=== PATIENT | female | born 1960 | race Caucasian/White ===

== ENCOUNTER 2016-06-22 21:21 | Emergency (ER) | payer OTHER ==
--- NOTE | ~2016-06-22 | CT16 ---
[facility] A Service of [facility] RADIOLOGY TEXT RESULTS PATIENT: NATHALIE KOCH LOCATION: [facility] : 62 UNIT #: [id number] AGE: [address]: Mani You MD SEX: F ORDER DR: [id number] [facility] [address]. [place], [place] [address] [id number] E MR#: [id number] Acc #: [id number] NAME: NATHALIE KOCH : 1960 SEX: F STUDY DATE/TIME: 06/22/2016 22:58 UNIT: HANNA ROOM: STUDY DESCRIPTION: CT Angio Chest for PE Attending Physician: Mani You M.D. Ordering Physician: Mani You M.D. Primary Care Physician: Richar Leahy M.D. MEDICAL IMAGING REPORT This report is preliminary unless electronic signature is present EXAM CTA chest, PE protocol INDICATIONS Elevated D-dimer level, chest pain, shortness of air and cough today. PROCEDURE Contrast-enhanced CTA of the chest, attention on opacification of the pulmonary arteries. Coronal and 3-D MIP sagittal reformatted images were reconstructed and submitted. 80 mL of Isovue-370. This CT exam was performed with one or more of the following radiation dose reduction techniques: Automatic exposure control, adjustment of mA and/or kV according to patient size, and iterative reconstruction. COMPARISON 05/20/2015 FINDINGS No evidence for pulmonary embolus. No evidence for acute aortic injury. Mild cardiomegaly. No acute findings in the included upper abdomen. Lungs are clear. No aggressive appearing bone lesion. Subacute or old fracture of the posterolateral right ninth rib. IMPRESSION 1. No acute findings in the chest, no evidence for pulmonary embolus. 2. Late subacute or old fracture of the posterolateral right ninth rib still shows some surrounding callus. It is new compared with 05/20/2015. Dictated by... [facility] A Service of [facility] RADIOLOGY TEXT RESULTS PATIENT: NATHALIE KOCH LOCATION: [facility] : 62 UNIT #: [id number] AGE: [address]: Mani You MD SEX: F ORDER DR: Aaron Guo M.D. THIS IS AN ELECTRONICALLY VERIFIED REPORT Aaron Guo M.D. at 06/23/2016 10:22 PM EED/psc TD: 06/23/2016 02:24 JOB #: [id number] MEDICAL IMAGING REPORT Page 1 of 1 COPY
--- NOTE | ~2016-06-22 | CR72 ---
[facility] A Service of [facility] RADIOLOGY TEXT RESULTS PATIENT: NATHALIE KOCH LOCATION: [facility] : 62 UNIT #: [id number] AGE: [address]: Mani You MD SEX: F ORDER DR: [id number] [facility] [address] [place], [place] [address] [id number] E MR#: [id number] Acc #: [id number] NAME: NATHALIE KOCH : 1960 SEX: F STUDY DATE/TIME: 06/22/2016 20:46 UNIT: [facility] ROOM: STUDY DESCRIPTION: CR Chest Single View Portable Attending Physician: Mani You M.D. Ordering Physician: Ed Doctor [id number] [facility] Primary Care Physician: Richar Leahy M.D. MEDICAL IMAGING REPORT This report is preliminary unless electronic signature is present EXAM Single view chest INDICATIONS Chest pain, shortness of air and cough. FINDINGS Single portable AP view of the chest compared to 02/25/2016. Heart mediastinal contours normal. Lungs are clear. No pneumothorax. IMPRESSION No acute findings. Dictated by... Bernard West M.D. THIS IS AN ELECTRONICALLY VERIFIED REPORT Bernard West M.D. at 06/23/2016 3:06 PM Marjorie TD: 06/23/2016 01:25 JOB #: [id number] MEDICAL IMAGING REPORT Page 1 of 1 COPY
--- NOTE | ~2016-06-22 | EKG ---
PATIENT: NATHALIE KOCH UNIT #: [id number] Ventricular Rate: 96 BPM Atrial Rate: 96 BPM P-R Interval: 142 ms QRS Duration: 86 ms Q-T Interval: 370 ms QTC Calculation(Bezet): 467 ms P [place]: 43 degrees Calculated R [place]: 24 degrees Calculated T [place]: 76 degrees Diagnosis Line: Normal sinus rhythm Diagnosis Line: Normal ECG Diagnosis Line: When compared with ECG of 20-MAY-2015 20:35, Diagnosis Line: No significant change was found Diagnosis Line: Confirmed by BARNEY CASIANO MD ([id number]) on 06/23/2016 Diagnosis Line: 10:28:29 PM INTERPRETING MD: [place] LEO
[2016-06-22 20:48] LABS: BASOPHIL# 0.1 X10e3 (0-0.3); BASOPHIL% 0.4 % (0-2.5); EOSINOPHIL# 0.4 X10e3 (0-0.7); EOSINOPHIL% 2.4 % (0.0-7.0); HEMATOCRIT 39.5 % (35.0-45.0); HEMOGLOBIN 12.6 gm/dL (12.0-16.0); LYMPHOCYTE% 19.5 % (17.0-45.0); MEAN CELL VOLUME 88.3 FL (83-96); MEAN CORPUSCULAR HEMOGLOBIN 28.1 PG (28-34); MEAN CORPUSCULAR HGB CONC 31.8 g/dL (30-36); MEAN PLATELET VOLUME 8.3 FL (6.5-11.5); MONOCYTE# 1.1 X10e3 (0-1.0); MONOCYTE% 7.3 % (3.0-12.0); NEUTROPHIL# 10.9 X10e3 (1.5-7.1); NEUTROPHIL% 70.4 % (40-75); PLATELET COUNT 294 X10e3 (140-420); RED BLOOD COUNT 4.48 X10e (3.90-5.30); RED CELL DISTRIBUTION WIDTH 15.2 % (11.0-15.5); WHITE BLOOD COUNT 15.5 X10e3 (4.0-10.5)
[2016-06-22 20:49] LABS: DIFF IND YES
[2016-06-22 20:57] LABS: ALBUMIN SERUM 3.6 g/dL (3.5-5.0); BILIRUBIN, DIRECT 0.1 mg/dL (0.0-0.2); BILIRUBIN,INDIRECT 0.5 mg/dL (0.0-0.9); BILIRUBIN,TOTAL 0.6 mg/dL (0.2-2.0); CALCIUM SERUM 9.3 mg/dL (8.4-10.2); CREATININE SERUM 0.5 mg/dL (0.6-1.4); GLOM FILT RATE Estimated 109.7 mL/min (>60); POTASSIUM 3.4 mmol/L (3.5-5.1)
[2016-06-22 21:02] LABS: POC - CKMB <1.0 ng/mL (0.0-7.9); POC - TROPONIN <0.05 ng/mL (<=0.05)
[2016-06-22 21:14] LABS: PLATELET ESTIMATE NORMAL (NORMAL)
[~2016-06-22 21:21] MED LIST: ACETAMINOPHEN650 M1 PO; ADVAIR; ADVAIR 2501 DISK W/D PO; ADVAIR 5001 DISK W/D PO; ALBUTEROL 0.5ML INH; ALBUTEROL17 GM; ALBUTEROL17 GM INH; ALDACTONE PO; ALDACTONE25 MG PO; ALENDRONATE SOD70 MG PO; AMARYL PO; ASPIRIN EC81 M1 PO; ASPIRIN81 M2 PO; ATORVASTATIN CA80 MG PO; ATROVENT; ATROVENT HFA12.9 GM; ATROVENT NEB; BACTRIM DS TABL1 TA2 PO; CARVEDILOL12.5 MG PO; CHEWABLE ASPIRI81 MG PO; CLARITIN10 M2 PO; CLARITIN10 MG PO; COREG3.125 MG PO; COUMADIN PO; COUMADIN10 MG PO; COUMADIN5 MG PO; COUMADIN7.5 MG PO; DOXYCYCLINE HY100 M3 PO; DUONEB 2.5-0.5 M3 ML INH; DUONEB 2.5-0.5 M3 ML NEB; FERROUS SU324 ( 65 ) PO; FLEXERIL PO; FOSAMAX PO; FUROSEMIDE40 MG PO; HEPARIN; HUMALOG100 U/ML SUBQ; HYCODAN60 ML 5MG/ PO; IRON PO; K-DUR20 ME1 PO; LANTUS100 U/ML SQ; LANTUS100 U/ML SUBQ; LASIX; LEVAQUIN; LEVAQUIN PO; LEVAQUIN750 MG PO; LEVEMIR FL100 UNIT/1 SQ; LIPITOR80 MG PO; LISINOPRIL10 MG PO; LOVENOX SUBQ; MEDROL PO; MEDROL4 MG/DOSE-; MEDROL4 MG/DOSE- PO; METFORMIN HCL1000 M2 PO; METFORMIN PO; METHYLPREDNISOLONE INJ; MILK OF MAGNESIA PO; MONOJECT PREFIL10 M1 INJ; NATEGLINIDE120 MG PO; NOVOLOG100 UNITS/ SUBQ; OXYGEN; PAXIL PO; PERCOCET5/325 PO; POTASSIUM99 M1 PO; PREDNISONE PO; PREDNISONE10 MG PO; PREDNISONE10 MG/DOSE PO; PREDNISONE5 M1 PO; PREDNISONE5 MG PO; PREDNISONE50 MG PO; PROTONIX PO; SENOKOT S1 TAB PO; SINGULAIR; SINGULAIR PO; SYMBICORT INH; TESSALON200 MG PO; TUSSIONEX PENN480 ML PO; TYLENOL325 M1 PO; VIBRAMYCIN100 M1 PO; VITAMIN D 4001 UDTAB PO; VITAMIN D50000 UNIT PO; ZESTRIL5 MG PO; ZITHROMAX PO; ZITHROMAX1 G/PKT PO; [UNRECOGNIZED DRUG - REMARK]; [UNRECOGNIZED DRUG - REMARK]
[2016-06-22 21:36] LABS: INR 1.2
[2016-06-22 22:14] LABS: POC - CKMB <1.0 ng/mL (0.0-7.9); POC - TROPONIN <0.05 ng/mL (<=0.05)
[2016-12-06] MEDS ORDERED: SYMBICORT80 INH (14:22)
[2016-12-06] MEDS ORDERED: TRESIBA FL100 UNIT/1 SUBQ (14:24)
[2016-12-06] MEDS ORDERED: COMBIVENT U/D3 ML INH (14:24)
[2016-12-06] MEDS ORDERED: BACTRIM DS TAB1 EACH (14:25)
[2016-12-06] MEDS ORDERED: PAXIL PO (14:27)
[2016-12-06] MEDS ORDERED: PROTONIX PO (14:27)
[2016-12-06] MEDS ORDERED: CLARITIN10 M3 PO (14:28)
[2016-12-06] MEDS ORDERED: BACTRIM DS TAB1 EACH PO (14:34)
== END 2016-06-23 00:05 | disposition home or self-care (01) ==
LOC: CED 21:21
PROVIDERS: Emergency Medicine
DX: R07.89 Other chest pain (principal); I11.0 Hypertensive heart disease with heart failure; I50.9 Heart failure, unspecified; J44.9 Chronic obstructive pulmonary disease, unspecified; Z90.49 Acquired absence of other specified parts of digestive tract; Z90.710 Acquired absence of both cervix and uterus; E11.9 Type 2 diabetes mellitus without complications
CPT/HCPCS: 36415; 71010; 71275; 80048; 80076; 82553; 84484; 85025; 85379; 85610; 93005; 99284; Q9967

== ENCOUNTER 2016-07-05 14:08 | Observation (INO) | payer OTHER ==
--- NOTE | ~2016-07-05 | ST ---
Unit #: [id number] #: [id number] Patient: NATHALIE KOCH [id number] [facility]. [address] [address] [id number] I MR#: [id number] NAME: NATHALIE KOCH. : 1960 SEX: F STUDY DATE/TIME: 07/06/2016 UNIT: Psychiatric ROOM: 567 STUDY DESCRIPTION: Lexiscan Cardiolite stress Attending Physician: Cristi Gamboa M.D. Primary Care Physician: Richar Leahy M.D. CARDIOLOGY REPORT EXAM Lexiscan Cardiolite stress test, nuclear portion. PROCEDURE Using technetium-99m labeled Cardiolite, rest and stress SPECT images were obtained. Multiple SPECT images were obtained in various views including horizontal and vertical long axis and short axis views of the left ventricle. Images were obtained by gated SPECT method. Patient was administered 10.96 mCi of Cardiolite at rest. Patient was administered 34.5 mCi of Cardiolite after Lexiscan infusion was completed. On the stress images, there is normal perfusion noted. The rest images show normal perfusion. Comparing rest and stress images, there is no stress induced ischemia noted. The left ventricular ejection fraction is calculated to be 47%. The left ventricular cavity is mildly dilated, both at rest and post stress. There is mild global hypokinesis seen. CONCLUSIONS 1. No obvious stress-induced ischemia noted. 2. The left ventricular ejection fraction is calculated to be 57%. 3. There is mild global hypokinesis seen. 4. The left ventricular cavity is mildly dilated, both at rest and post stress. 5. Suspicion for mild nonischemic dilated cardiomyopathy. 6. Technically limited study due to increased gut uptake. Clinical correlation is requested. Dictated by... Abimbola Fu TD: 07/07/2016 07:05 JOB #: [id number] Unit #: [id number] #: [id number] Patient: NATHALIE KOCH CARDIOLOGY REPORT Page 1 of 1 X Daina Florez MD <ELECTRONICALLY SIGNED> 10/09/16 1429 CARDIOLOGY REPORT
--- NOTE | ~2016-07-05 | EKG ---
PATIENT: NATHALIE KOCH UNIT #: [id number] Ventricular Rate: 79 BPM Atrial Rate: 79 BPM P-R Interval: 154 ms QRS Duration: 88 ms Q-T Interval: 402 ms QTC Calculation(Bezet): 460 ms P [place]: 37 degrees Calculated R [place]: 0 degrees Calculated T [place]: 72 degrees Diagnosis Line: Normal sinus rhythm Diagnosis Line: Minimal voltage criteria for LVH, may be normal Diagnosis Line: variant Diagnosis Line: Nonspecific T wave abnormality Diagnosis Line: Borderline ECG Diagnosis Line: When compared with ECG of 22-JUN-2016 18:40, Diagnosis Line: No significant change was found Diagnosis Line: Confirmed by BARNEY CASIANO MD ([id number]) on 07/06/2016 Diagnosis Line: 5:43:44 AM INTERPRETING MD: OH LEO
--- NOTE | ~2016-07-05 | EKG ---
PATIENT: NATHALIE KOCH UNIT #: [id number] Ventricular Rate: 63 BPM Atrial Rate: 63 BPM P-R Interval: 150 ms QRS Duration: 92 ms Q-T Interval: 460 ms QTC Calculation(Bezet): 470 ms P [place]: 30 degrees Calculated R [place]: 5 degrees Calculated T [place]: 64 degrees Diagnosis Line: Normal sinus rhythm Diagnosis Line: Normal ECG Diagnosis Line: When compared with ECG of 05-JUL-2016 12:35, Diagnosis Line: No significant change was found Diagnosis Line: Confirmed by BARNEY CASIANO MD ([id number]) on 07/07/2016 Diagnosis Line: 7:05:22 PM INTERPRETING MD: OH LEO
--- NOTE | ~2016-07-05 | DS ---
Unit #: [id number] #: [id number] Patient: NATHALIE KOCH [id number] [facility]. [place], [place] [address] [id number] I MR#: [id number] NAME: NATHALIE KOCH. ROOM: 567 Age: 55 Sex: F Admission Date: 07/05/2016 : 1960 Discharge Date: 07/06/2016 Attending Physician: Cristi Gamboa M.D. Primary Care Physician: Richar Leahy M.D. DISCHARGE SUMMARY SHORT-STAY SUMMARY HISTORY OF PRESENT ILLNESS This is a 55-year-old white female who is known to Dr. Gamboa that has a history of nonischemic cardiomyopathy where she underwent AICD implantation. She is known to have chronic systolic heart failure, hypertension, hyperlipidemia and nonsustained ventricular tachycardia. She underwent a cardiac catheterization in 2009 where she was found to have normal coronaries. Stress test in 2013 was normal. She comes to the emergency room with a complaint of sharp intermittent left anterior chest pain with radiation to her lower back associated with shortness of breath. She reports no diaphoresis or nausea. No cough, fever or chills. She was in the emergency room on 06/22/2016 with the same complaint. D-dimer was elevated at 1147 but CTA of the chest ruled out pulmonary embolism. Her troponin was negative at that time. On this visit her troponin remains normal. She has no acute EKG changes. There is no discharge of her AICD. PAST MEDICAL HISTORY 1. Cardiac catheterization 08/15/2009 shows normal coronaries with ejection fraction of 10% to 15%. 2. Two-D echocardiogram 07/04/2014 at [facility] shows an ejection fraction of 25% to 30% with moderate mitral regurgitation, mild tricuspid regurgitation and right ventricular systolic pressure of 30 to 40 mmHg. 3. Nonischemic cardiomyopathy, status post Biotronik AICD. 4. Chronic systolic heart failure. 5. Hypertension. 6. Hyperlipidemia. 7. Nonsustained ventricular tachycardia. 8. Diabetes mellitus type 2. 9. Stress test 10/2013 at [facility] showed no ischemia, with an ejection fraction of 55%. 10. Obstructive sleep apnea, wears CPAP. 11. Asthma. 12. COPD. 13. GERD. 14. Obesity. 15. Left atrial thrombus, on anticoagulation with Coumadin. 16. Chronic anemia. 17. Nonsmoker. PAST SURGICAL HISTORY 1. AICD implantation. 2. Hysterectomy. Unit #: [id number] #: [id number] Patient: NATHALIE KOCH 3. section. SOCIAL HISTORY The patient is disabled. She is a lifelong nonsmoker, denies illicit drug and alcohol use. FAMILY HISTORY Positive for myocardial infarctions in both parents. ALLERGIES Vancomycin. HOME MEDICATIONS 1. Glucophage 1000 mg b.i.d. 2. Levemir 40 units subcu b.i.d. 3. Furosemide 40 mg daily. 4. Alendronate 10 mg weekly. 5. Aspirin 81 mg daily. 6. Ferrous sulfate 325 mg daily. 7. Potassium 99 mg daily. 8. Prednisone 10 mg daily. 9. Warfarin 6 mg Tuesday through Tuesday and 3 mg Tuesday and Tuesday. 10. Lisinopril 10 mg q.h.s. 11. Carvedilol 12.5 mg b.i.d. 12. Amaryl 4 mg daily. 13. Singulair 10 mg q.h.s. 14. Vitamin D 50,000 units weekly. 15. Jardiance 10 mg daily. 16. Atorvastatin 80 mg daily. REVIEW OF SYSTEMS A 10-point review of systems is negative except for details stated in the HPI. PHYSICAL EXAMINATION VITAL SIGNS: Blood pressure 100/68, heart rate is 97, temperature 97.9. GENERAL: This is a 55-year-old, middle-aged, obese white female who is in no acute distress. NEUROLOGICAL: She is awake, alert and oriented. There are no focal weaknesses. PUGGER HELPER within normal limits. NECK: Trachea is midline. No thyromegaly or lymphadenopathy. No jugular venous distention. HEART: S1, S2. Heart sounds are normal. No murmurs or rubs or clicks. Regular rate and rhythm. No costochondral tenderness. ABDOMEN: Soft, nontender, with bowel sounds present. EXTREMITIES: Without leg edema. DIAGNOSTIC STUDIES LABORATORY: Hemoglobin 11.9, hematocrit 38.2, platelet count of 269, white count 14.7, sodium 142, potassium 4.0, BUN 19, creatinine 0.7, glucose 114, BNP 17, troponin less than 0.05, INR 2.3. IMAGING: Chest x-ray shows no active disease. CARDIOVASCULAR: EKG shows normal sinus rhythm with a questionable old inferior infarct. IMPRESSION Unit #: [id number] #: [id number] Patient: NATHALIE KOCH 1. Chest pain, questionable etiology. 2. Nonischemic cardiomyopathy, status post AICD. 3. Chronic systolic heart failure with reduced ejection fraction of 25% to 30%. 4. Hypertension. 5. Hyperlipidemia. 6. Diabetes mellitus type 2. 7. Chronic obstructive pulmonary disease/asthma by history. 8. Left atrial thrombus, on anticoagulation with Coumadin. 9. Leukocytosis secondary to chronic steroid use. 10. Obesity. PLAN 1. The patient's chest pain is atypical for ischemic heart disease. She had normal coronaries per cardiac catheterization in 2009. I will continue to trend cardiac enzymes and troponin to rule out myocardial infarction. 2. Proceed with Lexiscan Cardiolite stress test in the a.m. if troponin is normal. 3. Continue Coumadin. 4. Lipid profile will be obtained. HOSPITAL COURSE The patient underwent Lexiscan Cardiolite stress test. Nuclear image revealed no evidence of ischemia. Ejection fraction is low but that is known. DISCHARGE MEDICATIONS Continue on current medication regimen without changes. DISPOSITION She is to be discharged home today. FOLLOWUP 1. Follow up with her primary care physician in one to two weeks. 2. Follow up with pulmonology as needed. 3. Follow up with Dr. Gamboa on 09/14/2016 at 1413. DISCHARGE INSTRUCTIONS PT and INR will be done on Tuesday per [facility] with results called to our office; INR today 1.7. Dictated by... Yani CollinsPShuRShuN. for Abimbola Luis/kike TD: 07/06/2016 18:47 JOB #: [id number] Unit #: [id number] #: [id number] Patient: NATHALIE KOCH DISCHARGE SUMMARY Page 1 of 1 X Carlo Tran APRN DISCHARGE SUMMARY
--- NOTE | ~2016-07-05 | ST ---
Unit #: [id number] #: [id number] Patient: NATHALIE KOCH [id number] [facility]. [place], [place] [address] [id number] I MR#: [id number] NAME: NATHALIE KOCH. : 1960 SEX: F STUDY DATE/TIME: 07/06/2016 UNIT: [facility] ROOM: 567 STUDY DESCRIPTION: Attending Physician: Cristi Gamboa M.D. Primary Care Physician: Richar Leahy M.D. CARDIOLOGY REPORT EXAM EKG portion of Lexiscan Cardiolite stress test. REASON FOR EXAM History of chest pain, shortness of breath, and palpitations. DISCUSSION Baseline EKG reveals sinus rhythm with a ventricular rate of 69 beats per minute. Nonspecific ST-T wave changes noted in the septal and lateral leads. A total of 0.4 mg of Lexiscan was injected per protocol followed by Cardiolite. There were no complaints of worsening chest pain. The patient did have some chest pain at baseline but cardiac enzymes were negative. There were rare premature ventricular complexes noted. There were no acute ST or T wave changes to suggest ischemia. The maximal heart rate was 105 beats per minute with a maximal blood pressure of 131/74 mmHg. The test was stopped due to protocol completion. IMPRESSION 1. Negative EKG portion of Lexiscan Cardiolite stress test. 2. There were no complaints of worsening chest pain. 3. There were rare premature ventricular complexes noted. 4. There were no ST or T wave changes to suggest ischemia. 5. Please correlate with Cardiolite images. Dictated by... Verna Jaime APRN for Abimbola Fu TD: 07/07/2016 15:09 JOB #: [id number] Unit #: [id number] #: [id number] Patient: NATHALIE KOCH CARDIOLOGY REPORT Page 1 of 1 X CARDIOLOGY REPORT
--- NOTE | ~2016-07-05 | CR63 ---
[facility] A Service of [facility] RADIOLOGY TEXT RESULTS PATIENT: NATHALIE KOCH LOCATION: [place] [address] : [birth year] UNIT #: [id number] AGE: [address]: Cristi Gamboa MD SEX: F ORDER DR: [id number] [facility] [address] [place], [place] [address] [id number] E MR#: [id number] Acc #: [id number] NAME: NATHALIE KOCH. : 1960 SEX: F STUDY DATE/TIME: 07/05/2016 13:22 UNIT: HANNA ROOM: STUDY DESCRIPTION: CR Chest 2 View Attending Physician: Robbie Velasco M.D. Ordering Physician: Robbie Velasco M.D. Primary Care Physician: Richar Leahy M.D. MEDICAL IMAGING REPORT This report is preliminary unless electronic signature is present EXAM Chest PA and lateral DATE OF EXAMINATION: 07/05 COMPARISON: Comparison examination is dated 06/22/16 HISTORY Chest pain and shortness of breath for 3 days, FINDINGS PA and lateral views of the chest are obtained. Cardiovascular configuration remains normal. Lungs are clear. Transvenous pacing device in right-sided Mediport remain in good position. CONCLUSION 1. Stable chest. No active disease. Dictated by... Tom Krueger M.D. THIS IS AN ELECTRONICALLY VERIFIED REPORT Tom Krueger M.D. at 07/06/2016 7:32 AM JARET/leelee TD: 07/05/2016 14:28 JOB #: [id number] MEDICAL IMAGING REPORT Page 1 of 1 COPY
[2016-07-05 13:22] LABS: BASOPHIL% 0.2 % (0-2.5); EOSINOPHIL# 0.2 X10e3 (0-0.7); EOSINOPHIL% 1.6 % (0.0-7.0); HEMATOCRIT 38.2 % (35.0-45.0); HEMOGLOBIN 11.9 gm/dL (12.0-16.0); LYMPHOCYTE# 1.3 X10e3 (1.0-3.5); LYMPHOCYTE% 9.1 % (17.0-45.0); MEAN CELL VOLUME 89.2 FL (83-96); MEAN CORPUSCULAR HEMOGLOBIN 27.9 PG (28-34); MEAN CORPUSCULAR HGB CONC 31.2 g/dL (30-36); MEAN PLATELET VOLUME 8.4 FL (6.5-11.5); MONOCYTE# 0.4 X10e3 (0-1.0); MONOCYTE% 2.5 % (3.0-12.0); NEUTROPHIL# 12.8 X10e3 (1.5-7.1); NEUTROPHIL% 86.6 % (40-75); PLATELET COUNT 269 X10e3 (140-420); RED BLOOD COUNT 4.29 X10e (3.90-5.30); RED CELL DISTRIBUTION WIDTH 15.2 % (11.0-15.5); WHITE BLOOD COUNT 14.7 X10e3 (4.0-10.5)
[2016-07-05 13:23] LABS: DIFF IND NO
[2016-07-05 13:28] LABS: POC - CKMB <1.0 ng/mL (0.0-7.9); POC - TROPONIN <0.05 ng/mL (<=0.05)
[2016-07-05 13:40] LABS: INR 2.3; PROTHROMBIN TIME (PATIENT) 25.3 SECONDS (9.6-11.5)
[2016-07-05 13:52] LABS: ALBUMIN SERUM 3.4 g/dL (3.5-5.0); BILIRUBIN, DIRECT 0.1 mg/dL (0.0-0.2); BILIRUBIN,INDIRECT 0.2 mg/dL (0.0-0.9); BILIRUBIN,TOTAL 0.3 mg/dL (0.2-2.0); BUN/CREATININE RATIO 27.14; CALCIUM SERUM 9.1 mg/dL (8.4-10.2); CREATININE SERUM 0.7 mg/dL (0.6-1.4); GLOM FILT RATE Estimated 98.2 mL/min (>60); PROTEIN TOTAL SERUM 6.5 g/dL (6.0-8.3)
[2016-07-05] MEDS ORDERED: METFORMIN PO (15:17)
[2016-07-05] MEDS ORDERED: LASIX PO (15:17)
[2016-07-05] MEDS ORDERED: LEVEMIR SUBQ (15:17)
[2016-07-05] MEDS ORDERED: ALENDRONATE SOD10 MG PO (15:18)
[2016-07-05] MEDS ORDERED: FERROUS SULFATE PO (15:18)
[2016-07-05] MEDS ORDERED: POTASSIUM99 M1 PO (15:18)
[2016-07-05] MEDS ORDERED: BAYER CHEWABLE81 MG PO (15:18)
[2016-07-05 15:19] LABS: POC - CKMB <1.0 ng/mL (0.0-7.9); POC - TROPONIN <0.05 ng/mL (<=0.05)
[2016-07-05] MEDS ORDERED: PREDNISONE10 MG PO (15:19)
[2016-07-05] MEDS ORDERED: WARFARIN SODIUM6 MG PO (15:20)
[2016-07-05] MEDS ORDERED: WARFARIN SODIUM3 M1 PO (15:21)
[2016-07-05] MEDS ORDERED: LISINOPRIL10 MG PO (15:21)
[2016-07-05] MEDS ORDERED: CARVEDILOL12.5 MG PO (15:21)
[2016-07-05] MEDS ORDERED: AMARYL PO (15:22)
[2016-07-05] MEDS ORDERED: MONTELUKAST SOD10 MG PO (15:22)
[2016-07-05] MEDS ORDERED: VITAMIN D PO (15:23)
[2016-07-05] MEDS ORDERED: JARDIANCE10 MG PO (15:24)
[2016-07-05] MEDS ORDERED: ATORVASTATIN CA80 MG PO (15:26)
[2016-07-05 22:05] LABS: CK TOTAL 43 IU/L (26-140)
[2016-07-06 04:01] LABS: HEMATOCRIT 36.2 % (35.0-45.0); HEMOGLOBIN 11.5 gm/dL (12.0-16.0); MEAN CELL VOLUME 88.6 FL (83-96); MEAN CORPUSCULAR HEMOGLOBIN 28.2 PG (28-34); MEAN CORPUSCULAR HGB CONC 31.8 g/dL (30-36); MEAN PLATELET VOLUME 8.9 FL (6.5-11.5); RED BLOOD COUNT 4.09 X10e (3.90-5.30); RED CELL DISTRIBUTION WIDTH 15.2 % (11.0-15.5); WHITE BLOOD COUNT 17.7 X10e3 (4.0-10.5)
[2016-07-06 04:07] LABS: INR 1.7
[2016-07-06 04:17] LABS: CK TOTAL 46 IU/L (26-140)
[2016-07-06 04:38] LABS: BUN/CREATININE RATIO 32.85; CREATININE SERUM 0.7 mg/dL (0.6-1.4); GLOM FILT RATE Estimated 98.2 mL/min (>60); POTASSIUM 3.8 mmol/L (3.5-5.1)
[2016-12-06] MEDS ORDERED: SYMBICORT80 INH (14:22)
[2016-12-06] MEDS ORDERED: TRESIBA FL100 UNIT/1 SUBQ (14:24)
[2016-12-06] MEDS ORDERED: COMBIVENT U/D3 ML INH (14:24)
[2016-12-06] MEDS ORDERED: BACTRIM DS TAB1 EACH (14:25)
[2016-12-06] MEDS ORDERED: PROTONIX PO (14:27)
[2016-12-06] MEDS ORDERED: PAXIL PO (14:27)
[2016-12-06] MEDS ORDERED: CLARITIN10 M3 PO (14:28)
[2016-12-06] MEDS ORDERED: BACTRIM DS TAB1 EACH PO (14:34)
== END 2016-07-06 16:14 | disposition home or self-care (01) ==
LOC: CED 14:08 → CEDOF 15:55 → C5C 20:48
PROVIDERS: Emergency Medicine; Internal Medicine Cardiovascular Disease
DX: R07.89 Other chest pain (principal); I11.0 Hypertensive heart disease with heart failure; I50.22 Chronic systolic (congestive) heart failure; I42.8 Other cardiomyopathies; E78.5 Hyperlipidemia, unspecified; E11.9 Type 2 diabetes mellitus without complications; J44.9 Chronic obstructive pulmonary disease, unspecified; J45.909 Unspecified asthma, uncomplicated; I51.3 Intracardiac thrombosis, not elsewhere classified; Z79.01 Long term (current) use of anticoagulants; D72.828 Other elevated white blood cell count; T38.0X5A Adverse effect of glucocorticoids and synthetic analogues, initial encounter; E66.9 Obesity, unspecified; Z82.49 Family history of ischemic heart disease and other diseases of the circulatory system; Z79.84 Long term (current) use of oral hypoglycemic drugs; Z79.82 Long term (current) use of aspirin
CPT/HCPCS: 36415; 71020; 78452; 80048; 80061; 80076; 82550; 82553; 82947; 83880; 84484; 85025; 85027; 85610; 93005; 94660; 94760; 99285; A9500; G0378; J1642; J1815; J2785

== ENCOUNTER 2016-09-02 22:52 | Emergency (ER) | payer OTHER ==
--- NOTE | ~2016-09-02 | EKG ---
PATIENT: NATHALIE KOCH UNIT #: [id number] Ventricular Rate: 90 BPM Atrial Rate: 90 BPM P-R Interval: 148 ms QRS Duration: 78 ms Q-T Interval: 388 ms QTC Calculation(Bezet): 474 ms P [place]: 63 degrees Calculated R [place]: 33 degrees Calculated T [place]: 73 degrees Diagnosis Line: Normal sinus rhythm Diagnosis Line: Low voltage QRS Diagnosis Line: ST segment depression in the anterolateral leads Diagnosis Line: Poor baseline Diagnosis Line: Abnormal ECG Diagnosis Line: When compared with ECG of 06-JUL-2016 05:42, Diagnosis Line: ST segment appears more depressed in the Diagnosis Line: anterolateral leads Diagnosis Line: Confirmed by CELESTE CALDERÓN MD ([id number]) on Diagnosis Line: 09/03/2016 4:05:03 PM INTERPRETING MD: MINDY
--- NOTE | ~2016-09-02 | EKG ---
PATIENT: NATHALIE KOCH UNIT #: [id number] Ventricular Rate: 82 BPM Atrial Rate: 82 BPM P-R Interval: 138 ms QRS Duration: 86 ms Q-T Interval: 410 ms QTC Calculation(Bezet): 479 ms P [place]: 43 degrees Calculated R [place]: 31 degrees Calculated T [place]: 62 degrees Diagnosis Line: Normal sinus rhythm Diagnosis Line: Poor baseline Diagnosis Line: Nonspecific ST-T wave changes present diffusely Diagnosis Line: When compared with ECG of 03-SEP-2016 01:43, Diagnosis Line: (unconfirmed) Diagnosis Line: Non-specific change in ST segment in Lateral leads Diagnosis Line: Confirmed by CELESTE CALDERÓN MD ([id number]) on Diagnosis Line: 09/03/2016 4:09:41 PM INTERPRETING MD: MINDY
--- NOTE | ~2016-09-02 | CR72 ---
[facility] A Service of [facility] RADIOLOGY TEXT RESULTS PATIENT: NATHALIE KOCH LOCATION: [facility] : 62 UNIT #: [id number] AGE: [address]: Robbie Velasco MD SEX: F ORDER DR: [id number] [facility] [address] [place], [place] [address] [id number] E MR#: [id number] Acc #: [id number] NAME: NATHALIE KOCH : 1960 SEX: F STUDY DATE/TIME: 09/02/2016 23:34 UNIT: [facility] ROOM: STUDY DESCRIPTION: CR Chest Single View Portable Attending Physician: Robbie Velasco M.D. Ordering Physician: Robbie Velasco M.D. Primary Care Physician: Richar Leahy M.D. MEDICAL IMAGING REPORT This report is preliminary unless electronic signature is present EXAM Portable chest, 09/02 COMPARISON 07/05/16 INDICATIONS Shortness of air and chest pain beginning today. FINDINGS A portable view of the chest was obtained. The heart size and vascularity are normal and the lungs are clear. The Port-A-Cath is in good position with its tip in the superior vena cava, and there is a single-lead pacemaker present with its tip in the right ventricle. The bones are normal. IMPRESSION No active disease. Dictated by... Rui Lemons M.D. THIS IS AN ELECTRONICALLY VERIFIED REPORT Rui Lemons M.D. at 09/03/2016 2:12 AM FEL/psc TD: 09/03/2016 00:32 JOB #: [id number] MEDICAL IMAGING REPORT Page 1 of 1 COPY
[~2016-09-02 22:52] MED LIST changes: +ALENDRONATE SOD10 MG PO; +BAYER CHEWABLE81 MG PO; +FERROUS SULFATE PO; +JARDIANCE10 MG PO; +LASIX PO; +LEVEMIR SUBQ; +MONTELUKAST SOD10 MG PO; +VITAMIN D PO; +WARFARIN SODIUM3 M1 PO; +WARFARIN SODIUM6 MG PO
[2016-09-02 23:34] LABS: POC - CKMB <1.0 ng/mL (0.0-7.9); POC - TROPONIN <0.05 ng/mL (<=0.05)
[2016-09-02 23:35] LABS: BASOPHIL# 0.1 X10e3 (0-0.3); BASOPHIL% 0.5 % (0-2.5); DIFF IND NO; EOSINOPHIL# 0.4 X10e3 (0-0.7); EOSINOPHIL% 2.6 % (0.0-7.0); HEMATOCRIT 38.8 % (35.0-45.0); HEMOGLOBIN 12.2 gm/dL (12.0-16.0); LYMPHOCYTE# 3.2 X10e3 (1.0-3.5); MEAN CELL VOLUME 90.3 FL (83-96); MEAN CORPUSCULAR HEMOGLOBIN 28.4 PG (28-34); MEAN CORPUSCULAR HGB CONC 31.4 g/dL (30-36); MEAN PLATELET VOLUME 8.9 FL (6.5-11.5); MONOCYTE# 1.1 X10e3 (0-1.0); MONOCYTE% 8.1 % (3.0-12.0); NEUTROPHIL# 9.3 X10e3 (1.5-7.1); NEUTROPHIL% 65.8 % (40-75); PLATELET COUNT 275 X10e3 (140-420); RED BLOOD COUNT 4.29 X10e (3.90-5.30); WHITE BLOOD COUNT 14.1 X10e3 (4.0-10.5)
[2016-09-02 23:52] LABS: INR 1.7; PROTHROMBIN TIME (PATIENT) 18.6 SECONDS (10.0-11.7)
[2016-09-02 23:59] LABS: ALBUMIN SERUM 3.3 g/dL (3.5-5.0); BILIRUBIN,TOTAL 0.5 mg/dL (0.2-2.0); BUN/CREATININE RATIO 23.33; CALCIUM SERUM 8.3 mg/dL (8.4-10.2); CREATININE SERUM 0.6 mg/dL (0.6-1.4); GLOM FILT RATE Estimated 103.3 mL/min (>60); POTASSIUM 3.9 mmol/L (3.5-5.1); PROTEIN TOTAL SERUM 6.6 g/dL (6.0-8.3)
[2016-09-03] LABS: BILIRUBIN, DIRECT 0.1 mg/dL (0.0-0.2); BILIRUBIN,INDIRECT 0.4 mg/dL (0.0-0.9)
[2016-09-03 01:16] LABS: POC - CKMB <1.0 ng/mL (0.0-7.9); POC - TROPONIN <0.05 ng/mL (<=0.05)
[2016-12-06] MEDS ORDERED: SYMBICORT80 INH (14:22)
[2016-12-06] MEDS ORDERED: COMBIVENT U/D3 ML INH (14:24)
[2016-12-06] MEDS ORDERED: TRESIBA FL100 UNIT/1 SUBQ (14:24)
[2016-12-06] MEDS ORDERED: BACTRIM DS TAB1 EACH (14:25)
[2016-12-06] MEDS ORDERED: PROTONIX PO (14:27)
[2016-12-06] MEDS ORDERED: PAXIL PO (14:27)
[2016-12-06] MEDS ORDERED: CLARITIN10 M3 PO (14:28)
[2016-12-06] MEDS ORDERED: BACTRIM DS TAB1 EACH PO (14:34)
== END 2016-09-03 03:31 | disposition home or self-care (01) ==
LOC: CED 22:52
PROVIDERS: Emergency Medicine
DX: R07.89 Other chest pain (principal); I11.0 Hypertensive heart disease with heart failure; I50.9 Heart failure, unspecified; E78.5 Hyperlipidemia, unspecified; Z88.0 Allergy status to penicillin; Z79.82 Long term (current) use of aspirin; Z79.01 Long term (current) use of anticoagulants; Z79.899 Other long term (current) drug therapy
CPT/HCPCS: 36415; 71010; 80048; 80076; 82553; 83880; 84484; 85025; 85610; 93005; 99285; J1642

== ENCOUNTER → 2016-12-03 | Outpatient (CLI) | payer OTHER ==
[~2016-12-03] MED LIST changes: +BACTRIM DS TAB1 EACH; +BACTRIM DS TAB1 EACH PO; +CLARITIN10 M3 PO; +COMBIVENT U/D3 ML INH; +SYMBICORT80 INH; +TRESIBA FL100 UNIT/1 SUBQ
== END | disposition home or self-care (01) ==
LOC: CLAB 16:08
DX: N39.0 Urinary tract infection, site not specified (principal)
CPT/HCPCS: 87086; 87088; 87186

== ENCOUNTER → 2016-12-06 | Outpatient (CLI) | payer OTHER ==
--- NOTE | ~2016-12-06 | EKG ---
PATIENT: NATHALIE KOCH UNIT #: [id number] Ventricular Rate: 68 BPM Atrial Rate: 68 BPM P-R Interval: 154 ms QRS Duration: 98 ms Q-T Interval: 426 ms QTC Calculation(Bezet): 452 ms P [place]: 24 degrees Calculated R [place]: 0 degrees Calculated T [place]: 51 degrees Diagnosis Line: Normal sinus rhythm Diagnosis Line: T-wave inversion in Septal leads Diagnosis Line: When compared with ECG of 03-SEP-2016 01:54, Diagnosis Line: No significant change was found Diagnosis Line: Borderline ECG Diagnosis Line: Confirmed by BARNEY CASIANO MD ([id number]) on 12/07/2016 Diagnosis Line: 5:25:50 AM INTERPRETING MD: [place] LEO
[2016-12-06 12:34] LABS: HEMATOCRIT 39.6 % (35.0-45.0); HEMOGLOBIN 13.1 gm/dL (12.0-16.0); MEAN CELL VOLUME 87.9 FL (83-96); MEAN CORPUSCULAR HEMOGLOBIN 29.1 PG (28-34); MEAN CORPUSCULAR HGB CONC 33.1 g/dL (30-36); MEAN PLATELET VOLUME 7.5 FL (6.5-11.5); RED BLOOD COUNT 4.5 X10e (3.90-5.30); RED CELL DISTRIBUTION WIDTH 14.8 % (11.0-15.5); WHITE BLOOD COUNT 11.5 X10e3 (4.0-10.5)
[2016-12-06 12:47] LABS: INR 2.2; PROTHROMBIN TIME (PATIENT) 24.1 SECONDS (10.0-11.7)
[2016-12-06 13:40] LABS: ALBUMIN SERUM 3.6 g/dL (3.5-5.0); BILIRUBIN,TOTAL 0.1 mg/dL (0.2-2.0); BUN/CREATININE RATIO 15.71; CREATININE SERUM 0.7 mg/dL (0.6-1.4); GLOM FILT RATE Estimated 98.2 mL/min (>60); POTASSIUM 3.2 mmol/L (3.5-5.1); PROTEIN TOTAL SERUM 6.3 g/dL (6.0-8.3)
== END | disposition home or self-care (01) ==
LOC: CAMB 11:43
PROVIDERS: Orthopaedic Surgery
DX: Z01.818 Encounter for other preprocedural examination (principal); M17.11 Unilateral primary osteoarthritis, right knee
CPT/HCPCS: 36415; 80053; 85027; 85610; 86850; 86870; 86900; 86901; 86905; 87070; 93005